=== PATIENT | female | born 1935 | race Caucasian/White ===

== ENCOUNTER 2016-10-22 12:25 | Inpatient (IN) | payer MEDICARE, BC ==
[2016-10-22] VITALS (144 sets, daily range): BP systolic 85–91; BP diastolic 34–52; PULSE 56–63; TEMP 96.7; O2SAT 81–95
[~2016-10-22] VITALS: Ht 170.2 cm; Wt 63.6 kg
[~2016-10-22 12:25] MED LIST: ALLEGRA180 MG PO; ALTACE10 MG PO; AMBIEN 10MG10 MG PO; APRESOLINE50 MG PO; ASPIR-LOW81 MG PO; AVAPRO300 M1 PO; AVAPRO300 MG PO; CATAPRES 0.1MG0.1 MG PO; CATAPRES PATCH; CATAPRES-T0.3 MG/24 TD; CATAPRES0.3 MG PO; CELEBREX 200MG200 MG PO; CELEBREX200 MG PO; CELEXA 20MG20 MG/TAB PO; CLONIDINE0.3 MG PO; CLOPIDOGREL; COREG 25MG25 MG/TAB PO; COREG12.5 MG PO; DEMADEX10 MG PO; FENTANYL; FENTANYL 50MCG TP; HCTZ 25MG TAB25 MG PO; HYZAAR 25 MG-101 TAB PO; IRON TABLETS325 MG PO; LEVOTHROID0.15 MG PO; LEVOTHYROXIN0.075 MG PO; LOPRESSOR 225 MG/TAB PO; LORTAB 10/500 51 TAB PO; METOPROLOL25 MG PO; NEXIUM40 MG PO; NORCO 325 MG-51 TAB PO; NORVASC 5MG5 MG/TAB PO; PLAVIX 75MG TAB75 MG PO; PREMARIN 0.60.625 MG PO; PREMPRO 0.625 M1 TAB PO; PRILOSEC 20MG20 MG PO; PROZAC 10MG10 MG PO; REQUIP 1MG T1 MG/TAB PO; ROPINIROLE HYDRO1 MG PO; SYNTHROID0.075 MG/T PO; TOPROL XL25 MG PO; TOPROL XL50 MG PO; UNABLE; VITAMIN C500 MG PO; VITAMIN D50000 I2 PO; ZESTRIL 20MG TA20 MG PO; ZESTRIL40 MG PO
[2016-10-22 13:38] LABS: BASO % 0.5 % (0.0-2.0); EOS # 0.2 (0.0-0.7); EOS % 2.5 % (0-4.0); GRAN # 4.6 (1.4-6.5); GRAN % 75.2 % (42.2-75.2); HEMATOCRIT 31.3 % (37.0-47.0); HEMOGLOBIN 10.4 g/dl (12.5-16.0); LYMPH # 0.7 (1.2-3.4); LYMPH % 11.3 % (20.0-51.0); MEAN CELL VOLUME 95 fl (80.0-100.0); MEAN CORPUSCULAR HEMOGLOBIN 32 pg (27.0-31.0); MEAN CORPUSCULAR HGB CONC 33 g/dl (33.0-37.0); MEAN PLATELET VOLUME 11.3 fl (7.4-10.4); MONO # 0.6 (0.1-0.6); PLATELET COUNT 198 K/mm3 (130-400); RED BLOOD COUNT 3.28 M/mm3 (4.10-5.30); REDCELL DISTRIBUTION WIDTH-CV 14.2 % (11.5-14.5); WHITE BLOOD COUNT 6.1 K/mm3 (4.8-10.8)
[2016-10-22 13:39] LABS: PROTHROMBIN TIME 10.6 SECONDS (9.7-12.8)
[2016-10-22 13:42] LABS: PH 5 (5-8); URINE APPEARANCE Cloudy; URINE BACTERIA Rare /hpf; URINE BILIRUBIN Negative (NEGATIVE); URINE BLOOD Negative (NEGATIVE); URINE COLOR Amber; URINE GLUCOSE Negative (NEGATIVE); URINE KETONE Trace (NEGATIVE); URINE UROBILINOGEN Negative (NEGATIVE)
[2016-10-22 13:43] LABS: ADJUSTED CALCIUM 8.6 mg/dL (8.4-10.2); ALBUMIN 4.2 gm/dL (3.5-5.0); BILIRUBIN,TOTAL 0.9 mg/dL (0.0-1.0); CALCIUM 8.8 mg/dL (8.4-10.2); POTASSIUM 4.7 mmol/L (3.4-5.0); TOTAL PROTEIN 7.3 gm/dL (6.4-8.2)
[2016-10-22 13:58] LABS: CREATININE, serum 9.3 mg/dL (0.52-1.25); TROPONIN-I 0.044 ng/mL (0.000-0.034)
[2016-10-22] MEDS ORDERED: NORCO 325 MG-7.1 TAB PO (16:13)
[2016-10-22] MEDS ORDERED: ARICEPT ODT10 MG PO (16:15)
[2016-10-22] MEDS ORDERED: NAMENDA 10MG TA10 MG PO (16:16)
[2016-10-22] MEDS ORDERED: VITAMIN D 50,1.25 MG PO (16:17)
[2016-10-22] MEDS ORDERED: D3-5050000 IU (16:18)
[2016-10-22] MEDS ORDERED: VTAMINC250TA PO (16:19)
[2016-10-22] MEDS ORDERED: GENTAMICIN EYE D5 ML OD (16:19)
[2016-10-23 10:27] VITALS: BP 97/58; PULSE 61; TEMP 98.4
[2016-10-23 12:22] VITALS: BP 155/61; PULSE 75; TEMP 98.1
[2016-10-23 17:10] VITALS: BP 165/66; PULSE 86; TEMP 98.6
[2016-10-24 08:25] LABS: MEAN CELL VOLUME 96 fl (80.0-100.0); MEAN CORPUSCULAR HGB CONC 33 g/dl (33.0-37.0); MEAN PLATELET VOLUME 11.8 fl (7.4-10.4); PLATELET COUNT 215 K/mm3 (130-400); RED BLOOD COUNT 3.75 M/mm3 (4.10-5.30); REDCELL DISTRIBUTION WIDTH-CV 15.1 % (11.5-14.5); WHITE BLOOD COUNT 11.9 K/mm3 (4.8-10.8)
[2016-10-24 08:33] LABS: ADD PATHOLOGY DIFF REVIEW NO; HEMOGLOBIN 11.9 g/dl (12.5-16.0); MEAN CORPUSCULAR HEMOGLOBIN 32 pg (27.0-31.0)
[2016-10-24 08:39] LABS: ADJUSTED CALCIUM 8.8 mg/dL (8.4-10.2); ALBUMIN 3.8 gm/dL (3.5-5.0); BILIRUBIN,TOTAL 0.7 mg/dL (0.0-1.0); CALCIUM 8.6 mg/dL (8.4-10.2); POTASSIUM 4.9 mmol/L (3.4-5.0); TOTAL PROTEIN 6.9 gm/dL (6.4-8.2)
[2016-10-24 08:43] LABS: BAND 11 % (0-10); MYELOCYTE 1 % (0-0); NEUTROPHILS 80 % (42.0-75.2); PLATELET ESTIMATE NORMAL (NORMAL); TOTAL CELLS COUNTED 100
[2016-10-24 08:45] LABS: CREATININE, serum 5.35 mg/dL (0.52-1.25)
[2016-10-24 17:50] VITALS: BP 149/76; PULSE 100; TEMP 98.5
[2016-10-25] MEDS ORDERED: ATIVAN 2MG/ML2 MG/ML IV (15:42)
[2016-10-25] MEDS ORDERED: HALDOL 5MG/ML5 MG/ML IV (15:42)
[2016-10-25] MEDS ORDERED: ROXANOL 20MG20 MG/ML SL (15:42)
[2016-10-25] MEDS ORDERED: MORP4 IV (15:42)
[2016-10-25] MEDS ORDERED: TRANSDERM-0.5 MG/21 TD (15:43)
[2016-10-25] MEDS ORDERED: LIQUIFILM TEARS15 ML OP (15:43)
[2016-10-25] MEDS ORDERED: ZOFRAN INJ4 MG/2 ML IV (15:43)
[2016-10-25] MEDS ORDERED: HALDOL .5M0.5 MG/TAB PO (16:24)
[2016-10-25] MEDS ORDERED: ATIVAN 0.50.5 MG/TAB PO (16:24)
[2016-10-25] MEDS ORDERED: ZOFRAN ODT8 MG PO (16:24)
[2016-10-25 16:40] VITALS: BP 149/76; PULSE 100; TEMP 98.5
== END 2016-10-25 17:00 | disposition hospice, inpatient (51) | DRG 682 ==
LOC: COL.ER 12:25 → ICU 14:45 → MEDICAL 14:45
PROVIDERS: Emergency Medicine; Internal Medicine
DX: N17.9 Acute kidney failure, unspecified (principal); E43 Unspecified severe protein-calorie malnutrition; E87.1 Hypo-osmolality and hyponatremia; Z51.5 Encounter for palliative care; Z66 Do not resuscitate; E86.0 Dehydration; I25.10 Atherosclerotic heart disease of native coronary artery without angina pectoris; F03.90 Unspecified dementia, unspecified severity, without behavioral disturbance, psychotic disturbance, mood disturbance, and anxiety; I70.1 Atherosclerosis of renal artery; Z95.820 Peripheral vascular angioplasty status with implants and grafts; I12.9 Hypertensive chronic kidney disease with stage 1 through stage 4 chronic kidney disease, or unspecified chronic kidney disease; N18.9 Chronic kidney disease, unspecified; Z87.891 Personal history of nicotine dependence
CPT/HCPCS: 99223-AI; 99232-AI; 99239; J7030